=== PATIENT | female | born 1945 | race Caucasian/White ===

== ENCOUNTER 2020-09-01 14:44 | Emergency (ER) | payer MEDICARE, OTHER ==
[2020-09-01] MEDS ORDERED: Morphine 4 MG/ML VIAL ONE (14:58)
[2020-09-01] MEDS ORDERED: Promethazine HCl 25 MG/ML VIAL ONE (14:58)
[2020-09-01 15:16] LABS: #Lymphocytes 1.9 thou/uL (1.20-3.40); #Monocytes 0.5 thou/uL (0.11-0.59); #Neutrophils 4.2 thou/uL (1.40-6.50); %Basophils 0.7 % (0.0-1.0); %Eosinophils 0.7 % (0.0-10.0); %Lymphocytes 27.7 % (21.0-51.0); %Monocytes 8.1 % (0.0-10.0); %Neutrophils 62.8 % (42.0-75.0); Hemoglobin 11.8 g/dL (12.0-16.0); Mean Corpuscular HGB CONC 32.5 g/dL (32.0-36.0); Mean Corpuscular Hemoglobin 31.2 pg (27.0-31.0); Mean Corpuscular Volume 96.1 fL (78.0-98.0); Mean Platelet Volume 7.8 fL (7.4-10.4); Platelet Count 209 thou/uL (130-400); RBC Distribution Width 11.1 % (11.5-14.5); Red Blood Cell (RBC) Count 3.79 mill/uL (4.20-5.40); White Blood Cell (WBC) Count 6.7 thou/uL (4.8-10.8)
[2020-09-01 15:32] LABS: ALT (SGPT) 17 U/L (8-55); AST (SGOT) 16 U/L (5-34); Albumin 4.5 g/dL (3.4-4.8); Alkaline Phosphatase 110 U/L (40-110); Anion Gap 17 mmol/L (10-20); BUN (Urea Nitrogen) 26 mg/dL (9.8-20.1); Bilirubin, Total 0.5 mg/dL (0.2-1.2); Calc. Creatinine Clearance 0 mL/min (70-130); Calcium 9.9 mg/dL (7.8-10.44); Carbon Dioxide 25 mmol/L (23-31); Chloride 102 mmol/L (98-107); Globulin 3.1 g/dL (2.4-3.5); Glucose 158 mg/dL (83-110); Potassium 4.5 mmol/L (3.5-5.1); Protein, Total 7.6 g/dL (6.0-8.3); Sodium 139 mmol/L (136-145)
--- NOTE | 2020-09-01 17:08 | RAD ---
PORTABLE CHEST: 09/01/20 An AP portable film at 1518 is presented. The heart is normal in size. While the mediastinum seems sl ightly wide, I believe this is a function of the portable AP technique and angle it is shot at. There is no deviation of the trachea. The lungs are fully inflated and clear. There is no sign of pleural effusion. IMPRESSION: No acute thoracic finding. POS: HOME
--- NOTE | 2020-09-01 17:14 | RAD ---
LEFT SHOULDER THREE VIEWS: 09/01/20 There is a fracture of at least the greater tubercle with a shearing off of the tubercle and slight d isplacement. One of the views raised the question about the humeral neck, but I cannot confirm damage here as of yet. The AC joint shows arthritic change but no offset. The scapula appears intact, as do the visible adjacent ribs. IMPRESSION: Fracture of at least the greater tubercle of the humerus. There is no dislocation. POS: HOME
--- NOTE | 2020-09-01 17:15 | RAD ---
LEFT ANKLE THREE VIEWS: 09/01/20 No fracture was seen. All bones appeared intact. Large calcaneal spur was seen. IMPRESSION: No acute bony finding. POS: HOME
--- NOTE | 2020-09-01 17:16 | CT ---
CT OF THE BRAIN WITHOUT CONTRAST: 09/01/20 The ventricles are normal in size with no shift. No intracranial bleeding or extra-axial hematoma was seen. There is rather profound frontal or bifrontal atrophy. No mass, edema or stroke was found. The skull appears intact and the visible paranasal sinuses are clear. IMPRESSION: No acute intracranial findings. Preliminary report called to Dr. Chu at 1530 on 09/01/20. POS: HOME
== END 2020-09-01 15:50 | disposition home or self-care (01) ==
LOC: BURERS 14:44
DX: S42.252A Displaced fracture of greater tuberosity of left humerus, initial encounter for closed fracture (principal); W10.8XXA Fall (on) (from) other stairs and steps, initial encounter; Z79.899 Other long term (current) drug therapy; E11.9 Type 2 diabetes mellitus without complications; E78.5 Hyperlipidemia, unspecified; E78.00 Pure hypercholesterolemia, unspecified; I10 Essential (primary) hypertension
CPT/HCPCS: 36415; 70450; 71045; 80053; 84484; 85025; 93005; 96374; 96375; J2270; J2550